=== PATIENT | female | born 1995 | race Caucasian/White ===

== ENCOUNTER 2023-10-22 10:28 | Emergency (ER) | payer BC ==
[~2023-10-22] VITALS: Ht 157.5 cm; Wt 100.8 kg
[2023-10-22 11:08] LABS: BASOPHILS 0.8 % (0-2); EOSINOPHILS 2.3 % (0-6); HEMATOCRIT 36.6 % (35.0-50.0); HEMOGLOBIN 12.4 g/dL (12.0-18.0); LYMPHOCYTES 29.5 % (24-44); MCH 27.7 (27-36); MCHC 33.8 g/dl (30-36); MCV 81.7 fl (81-99); MONOCYTES 5.3 % (0-12); NEUTROPHILS 62.1 % (39-80); PLATELET COUNT 342 K/uL (140-440); RBC 4.48 M/ul (4.3-5.7); RDW 14.8 (10.5-15.0)
[2023-10-22 11:17] LABS: ALBUMIN 3.1 g/dL (3.4-5.0); ALBUMIN/GLOBULIN RATIO 0.66 (1.1-2.4); ANION GAP 13.6 (7-21); BILIRUBIN, TOTAL 0.3 ng/dL (0.2-1.0); BUN/CREATININE RATIO 13.15 (6.0-28.6); CALCIUM 8.9 mg/dL (8.5-10.1); CREATININE, SERUM 0.76 mg/dL (0.55-1.02); POTASSIUM 3.6 mmol/L (3.5-5.1); PROTEIN, TOTAL 7.8 g/dL (6.4-8.2)
[2023-10-22 12:28] LABS: BILIRUBIN, URINE NEGATIVE (negative); BLOOD/HGB, URINE NEGATIVE (Negative); KETONE, URINE NEGATIVE (Negative); LEUK ESTERASE, URINE NEGATIVE (negative); NITRITE, URINE NEGATIVE (negative); PH, URINE 6.5 (5-7)
[2023-10-22 14:09] VITALS: BP 120/61
== END 2023-10-22 14:08 | disposition home or self-care (01) ==
LOC: ED 10:28
PROVIDERS: Emergency Medicine
DX: K80.20 Calculus of gallbladder without cholecystitis without obstruction (principal)
CPT/HCPCS: 36415; 76700; 80053; 81003; 83690; 84703; 85025; 99284-25

== ENCOUNTER 2023-11-01 05:55 | Day surgery (SDC) | payer BC ==
[2023-10-30 13:27] VITALS: BP 118/81
[~2023-11-01] VITALS: Ht 157.5 cm; Wt 100.0 kg
[2023-11-01 06:08] VITALS: BP 122/70
[2023-11-01] MEDS ORDERED: IBUPROFEN600 MG PO (10:13)
[2023-11-01] MEDS ORDERED: ACETAMINOPHEN500 MG PO (10:13)
[2023-11-01] MEDS ORDERED: OXYCODON-ACETA1 EAC2 PO (10:13)
[2023-11-01 10:59] VITALS: BP 119/76
[2023-11-01 12:16] VITALS: BP 133/75
[2023-11-01 13:13] VITALS: BP 109/75
--- NOTE | 2023-11-01 14:34 | OR ---
[facility] [address] [facility] [place], [place] [address] Signed DATE OF OPERATION: 11/01/2023 SURGEON: Deborah Anglin MD PREOPERATIVE DIAGNOSES: 1. Chronic calculous cholecystitis. 2. Obesity. POSTOPERATIVE DIAGNOSES: 1. Chronic calculous cholecystitis. 2. Obesity. 3. 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 PROCEDURE: Laparoscopic cholecystectomy with intraoperative cholangiogram prolonged, complicated and difficult. ANESTHESIA: General endotracheal; Deborah Washington CRNA and local 10 mL of 0.25% Marcaine with epinephrine. INDICATION: This 27-year-old obese woman is a patient of Dr. John Dexter PA-C. She has had rather typical biliary symptoms and was evaluated in the emergency room by Dr. Chaudhari on 10/22/2023, showing gallstones with mild gallbladder wall thickening. Her liver enzymes are normal. She is admitted at this time to undergo cholecystectomy preferred by a laparoscopic approach. She understands the risk of bleeding, infection, bile duct injury, need for open procedure and other unforeseen complications. Understanding this she wished to proceed. FINDINGS: The gallbladder was chronically inflamed. There were a few adhesions to the right side of the abdomen requiring lysis of adhesions for optimal trocar placement. Quite notable was a very large artery associated with the gallbladder, which initially thought to be a very large cystic artery. However, with dissection, it was freed from the gallbladder entirely showing only small branches to the gallbladder itself and I believe it to be an anomalous right hepatic artery or an accessory right hepatic artery. It was completely preserved. Intraoperative cholangiogram was normal. The gallbladder itself had chronic Electronically Signed By: DEBORAH ANGLIN MD 11/01/23 1434 PATIENT NAME: BERTRAM ALEGRE OPERATIVE REPORT DATE OF : [birth year] REPORT #: [id number] PHYSICIAN: DEBORAH ANGLIN MD PCP: JOHN DEXTER PA-C REPORT IS CONFIDENTIAL AND NOT TO BE RELEASED WITHOUT AUTHORIZATION [facility] [address] [place], [place] [address] Signed inflammatory change and multiple small 2 mm dark gallstones. There was no evidence of malignancy. DESCRIPTION OF PROCEDURE: The patient was brought to the operating room, given a general endotracheal anesthetic. Preoperative antibiotic Ancef was given. Heparin subcutaneously administered and sequential compression device stockings used. The abdomen was prepared with a chlorhexidine solution and draped sterilely. An infraumbilical incision was made and using an open Shaquille cannula technique pneumoperitoneum was achieved to a level of 14 mmHg of carbon dioxide gas. Intra-abdominal inspection showed no sign of ascites or carcinomatosis. There were adhesions to the right side of the abdomen and adhesion to the undersurface of the gallbladder as well. Three additional trocars were placed in usual configuration in the subxiphoid, right midclavicular, and ultimately the right anterior axillary line. Adhesions of the right abdomen from omentum were taken down with blunt and electrocautery dissection to allow for optimal placement of the lateral trocars. The gallbladder was grasped and elevated cephalad, showing adhesions of omentum to the undersurface, these were taken down with blunt and electrocautery dissection. Elevation of the gallbladder was undertaken. The gallbladder was retracted laterally and using blunt and electrocautery dissection, peritoneum over the infundibulum was dissected. Noted was a rather generous size cystic artery or so it seemed. Further dissection preserving this branch was undertaken ultimately identifying the cystic duct itself. Given the size of the apparent cystic duct artery, suspicion was made this may represent an anomalous arterial situation. The artery was dissected free from the infundibulum of the gallbladder and once dissected approximately [address], the gallbladder was found to have no branching per se into the gallbladder and behind this area the peritoneum overlying the gallbladder itself appeared to be intact. Suspecting this may represent an anomalous right hepatic artery rather than a large cystic artery, further dissection was undertaken cephalad. The peritoneum of the gallbladder was incorporated with this arterial branch. Dissection to the apex of the gallbladder itself showed the artery size never to diminish and never to particularly branch to the gallbladder itself. There were small tributaries from it to the gallbladder. Dissection was taken to the very apex of the gallbladder, essentially dissecting all of the gallbladder away from the artery and from the hepatic fossa. At the very apex, the artery appeared to enter back into the liver. The gallbladder in the superior aspect was freed from this area completely, never really clipping a true cystic artery along the way. Photographs were taken. Since the gallbladder had essentially been dissected completely free and cholangiogram was still desired a fan retractor was used to elevate the hepatic bed allowing for good visualization of the cystic duct. A clip was applied across the gallbladder cystic duct junction and transverse choledochotomy made in the cystic duct. Using an Ibarra type cholangiocatheter, intraoperative cholangiography was undertaken showing free flow of contrast in the cystic duct and into the biliary tree which was not dilated, had no filling defect and Electronically Signed By: DEBORAH ANGLIN MD 11/01/23 1434 PATIENT NAME: BERTRAM ALEGRE OPERATIVE REPORT DATE OF : [birth year] REPORT #: [id number] PHYSICIAN: DEBORAH ANGLIN MD PCP: JOHN DEXTER PA-C REPORT IS CONFIDENTIAL AND NOT TO BE RELEASED WITHOUT AUTHORIZATION [facility] [address] [facility] [place] [facility] [place] [place] [address] Signed no impediment to flow. The proximal biliary radicals were normal. At this point, the cystic duct was triply clipped and divided and the gallbladder was placed in an endobag and extracted through the infraumbilical port site. A rent had been made in the gallbladder during the course of dissection with spillage of bile but no spillage of stones. The gallbladder was examined on the back table and found to have innumerable 2 mm black round gallstones. There was no sign of neoplasm of mucosa. Irrigation was undertaken in subhepatic space and reinspection of the artery, which had been preserved throughout dissection. It appeared to be intact and very likely re-enters the liver at the very apex where the gallbladder was. This may represent after all a anomalous accessory right hepatic artery or perhaps hepatic artery itself. The trocars were then removed under direct visualization showing no sign of bleeding. The infraumbilical fascial incision was reapproximated with interrupted 0 Vicryl suture. Irrigation was undertaken and the skin closed with interrupted 3-0 Vicryl after application of 10 mL of 0.25% Marcaine with epinephrine. Steri-Strips were applied. The patient was ultimately extubated and transported to recovery room in good condition having suffered no known complication. The operation was prolonged and complicated on the basis of dissection of the anomalous right hepatic artery, but was accomplished safely. It took approximately three times longer than usual. MD LORE Dozier/BRYAN /[id number] cc: Dr. Deborah Dexter PA-C Copies: ~ Electronically Signed By: DEBORAH ANGLIN MD 11/01/23 1434 PATIENT NAME: BERTRAM ALEGRE ANNIKA OPERATIVE REPORT DATE OF : [birth year] REPORT #: [id number] PHYSICIAN: DEBORAH ANGLIN MD PCP: JOHN DEXTER PA-C REPORT IS CONFIDENTIAL AND NOT TO BE RELEASED WITHOUT AUTHORIZATION
== END 2023-11-01 13:25 | disposition home or self-care (01) ==
LOC: DS 05:55
PROVIDERS: ATTEND Surgery
PROC: BF111ZZ Fluoroscopy of Biliary and Pancreatic Ducts using Low Osmolar Contrast (ICD-10-PCS; 2023-11-01)
PROC: 0FT44ZZ Resection of Gallbladder, Percutaneous Endoscopic Approach (ICD-10-PCS; principal; 2023-11-01 07:30)
DX: K80.10 Calculus of gallbladder with chronic cholecystitis without obstruction (principal); K21.9 Gastro-esophageal reflux disease without esophagitis; F17.210 Nicotine dependence, cigarettes, uncomplicated; E66.01 Morbid (severe) obesity due to excess calories; Z68.41 Body mass index [BMI] 40.0-44.9, adult
CPT/HCPCS: 00790; 74300; J0131; J0330; J0690; J1100; J1644; J1790; J1885; J2250; J2405; J2704; J2765; J3010; J3490; J7121; Q9967